=== PATIENT | male | born 1995 | race Caucasian/White ===

== ENCOUNTER 2020-06-30 04:17 | Emergency (ER) | payer BC ==
[2020-06-30] MEDS ORDERED: Boostrix 0.5 ML (Tdap) VIAL ONE (04:39)
[2020-06-30] MEDS ORDERED: Lidocaine 1% PF 5 ML VIAL ONE (04:39)
[2020-06-30] MEDS ORDERED: Bacitracin 1 PK ONE (04:57)
== END 2020-06-30 05:10 | disposition home or self-care (01) ==
LOC: ERS 04:17
DX: S61.011A Laceration without foreign body of right thumb without damage to nail, initial encounter (principal); Z23 Encounter for immunization; W26.8XXA Contact with other sharp object(s), not elsewhere classified, initial encounter
CPT/HCPCS: 12001; 90471; 90715